=== PATIENT | male | born 1985 | race Two or more races ===

== ENCOUNTER 2018-03-24 07:31 | Emergency (ER) | payer BC ==
[~2018-03-24] VITALS: Ht 172.7 cm; Wt 70.0 kg
[2018-03-24 09:10] VITALS: BP 110/70
== END 2018-03-24 09:11 | disposition home or self-care (01) ==
LOC: ER 07:31
DX: J06.9 Acute upper respiratory infection, unspecified (principal); F17.200 Nicotine dependence, unspecified, uncomplicated; J45.909 Unspecified asthma, uncomplicated; M79.10 Myalgia, unspecified site
CPT/HCPCS: 71045; 99283

== ENCOUNTER 2018-10-06 03:41 | Emergency (ER) | payer BC ==
[~2018-10-06] VITALS: Ht 172.7 cm; Wt 69.0 kg
[2018-10-06] MEDS ORDERED: HYDROCODONE/ACETAMINOPHEN 5/325MG TABLET PO STA (05:21)
[2018-10-06 07:05] VITALS: BP 118/84
== END 2018-10-06 07:09 | disposition home or self-care (01) ==
LOC: ER 03:41
DX: M62.830 Muscle spasm of back (principal); M54.6 Pain in thoracic spine; R06.02 Shortness of breath; J45.909 Unspecified asthma, uncomplicated; F17.200 Nicotine dependence, unspecified, uncomplicated; Z87.09 Personal history of other diseases of the respiratory system
CPT/HCPCS: 71045; 93005; 99283; Z7610

== ENCOUNTER → 2020-09-12 | Outpatient (CLI) | payer BC ==
[2020-09-12 10:02] LABS: BASOPHILS % 1.5 % (0.0-2.0); EOSINOPHILS % 2.8 % (0.0-5.0); HEMOGLOBIN. 13.9 g/dL (14.0-18.0); LYMPHOCYTES % 35.5 % (20.0-50.0); MEAN CORPUSCULAR HEMOGLOBIN 30.4 pg (28.0-32.0); MEAN CORPUSCULAR VOLUME 87.4 fL (80.0-94.0); MEAN PLATELET VOLUME 6.8 fl (7.4-10.4); MONOCYTES % 8.5 % (2.0-8.0); NEUTROPHILS % 51.7 % (40.0-76.0); PLATELET 232 x1000/uL (130-400); RED BLOOD CELL COUNT 4.57 mill/uL (4.7-6.1); RED CELL DISTRIBUTION WIDTH 13.1 % (11.6-14.6)
[2020-09-12 10:23] LABS: CHLORIDE 107 mEq/L (98-107)
[2020-09-12 10:30] LABS: LDL CHOLESTEROL 101 mg/dL (5-100)
[2020-09-12 10:31] LABS: HDL CHOLESTEROL 63 mg/dL (40-59)
[2020-09-12 10:32] LABS: T4 FREE 1.26 ng/dL (0.76-1.46)
[2020-09-13 05:09] LABS: VITAMIN D 25-OH 26.6 ng/mL (30.0-100.0)
== END | disposition home or self-care (01) ==
LOC: MRI 09:40
PROVIDERS: ATTEND Internal Medicine Critical Care Medicine
DX: Z00.00 Encounter for general adult medical examination without abnormal findings (principal); M51.17 Intervertebral disc disorders with radiculopathy, lumbosacral region; M48.07 Spinal stenosis, lumbosacral region
CPT/HCPCS: 36415; 72100; 72148; 80053; 80061; 82306; 84439; 84443; 84479; 85025

== ENCOUNTER → 2021-11-19 | Outpatient (CLI) | payer BC ==
[2021-11-19 08:07] LABS: CHLORIDE 105 mEq/L (98-107)
[2021-11-19 08:20] LABS: BASOPHILS % 1.1 % (0.0-2.0); EOSINOPHILS % 1.8 % (0.0-5.0); HEMATOCRIT. 38.5 % (42.0-52.0); HEMOGLOBIN. 12.6 g/dL (14.0-18.0); LYMPHOCYTES % 35.9 % (20.0-50.0); MEAN CORPUSCULAR VOLUME 88.1 fL (80.0-94.0); MEAN PLATELET VOLUME 7.3 fl (7.4-10.4); MONOCYTES % 9.8 % (2.0-8.0); NEUTROPHILS % 51.4 % (40.0-76.0); PLATELET 237 x1000/uL (130-400); RED BLOOD CELL COUNT 4.37 mill/uL (4.7-6.1); RED CELL DISTRIBUTION WIDTH 13.3 % (11.6-14.6)
== END | disposition home or self-care (01) ==
LOC: LAB 07:27
PROVIDERS: ATTEND Psychiatry & Neurology Neurology
DX: Z00.00 Encounter for general adult medical examination without abnormal findings (principal); I67.5 Moyamoya disease
CPT/HCPCS: 36415; 80048; 85025

== ENCOUNTER → 2021-11-28 | Outpatient (CLI) | payer BC ==
[~2021-11-28] MED LIST: IOHEXOL-350 100 ML BOTTLE ONE
== END | disposition home or self-care (01) ==
LOC: CT 07:24
PROVIDERS: ATTEND Psychiatry & Neurology Neurology
DX: I67.5 Moyamoya disease (principal)
CPT/HCPCS: 70496; 70498; Q9967